=== PATIENT | female | born 1960 | race Caucasian/White ===

== ENCOUNTER 2017-03-04 20:39 | Emergency (ER) | payer OTHER ==
[~2017-03-04] VITALS: Ht 156.2 cm; Wt 90.9 kg
[2017-03-04 20:41] VITALS: BP 149/91; PULSE 97; RESP 20; TEMP 98.2; O2SAT 96
[2017-03-04] MEDS: RESP: ALBUTEROL 2.5 MG/IPRATROPIUM 0.5 MG NEB (SCH) INH ×2 (21:21→22:21)
[2017-03-04] MEDS ORDERED: methylPREDNISolone SOD SUCC 125 MG/2 ML VIAL IV PUSH ONE (21:30)
--- NOTE | 2017-03-04 21:50 | PD ---
HPI Chief Complaint: Respiratory Symptoms Time Seen by Provider: 21:12 Travel History International Travel<30 days: No Contact w/Intl Traveler<30days: No Traveled to known affect area: No History of Present Illness HPI 56yo F with PMH of asthma presents to the ED with c/o sob for 3 days. She is wheezing and it feels like her asthma. Also with chest tightness that is midsternal. +Cough. Denies fever, n/v, abdominal pain, focal weakness or numbness. PFSH Past Medical History Respiratory: Yes (asthma) Social History Tobacco Use: No Allergies-Medications (Allergen,Severity, Reaction): Coded Allergies: Penicillins (Verified Allergy, Unknown, 03/04/17) Sulfa (Sulfonamide Antibiotics) (Verified Allergy, Unknown, 03/04/17) Reported Meds & Prescriptions Reported Meds & Active Scripts Active Ventolin Hfa 18 GM Inh (Albuterol Sulfate) 90 Mcg/Act Aer 2 Puff INH Q4H PRN Deltasone (Prednisone) 20 Mg Tab 20 Mg PO BID 5 Days Review of Systems Except as stated in HPI: all other systems reviewed are Neg Physical Exam Narrative GENERAL: 56yo F in mild distress. SKIN: Focused skin assessment warm/dry. HEAD: Atraumatic. Normocephalic. EYES: Pupils equal and round. No scleral icterus. No injection or drainage. ENT: No nasal bleeding or discharge. Mucous membranes pink and moist. NECK: Trachea midline. No JVD. CARDIOVASCULAR: Regular rate and rhythm. No murmur appreciated. RESPIRATORY: + accessory muscle use. Expiratory wheezing bilaterally. GASTROINTESTINAL: Abdomen soft, non-tender, nondistended. MUSCULOSKELETAL: No obvious deformities. No clubbing. No cyanosis. No edema. NEUROLOGICAL: Awake and alert. No obvious cranial nerve deficits. Motor grossly within normal limits. Normal speech. PSYCHIATRIC: Appropriate mood and affect; insight and judgment normal. Data Data Last Documented VS Vital Signs Date Time Temp Pulse Resp B/P (MAP) Pulse Ox O2 Delivery O2 Flow Rate FiO2 03/04/17 23:28 100 16 153/86 (108) 97 03/04/17 20:41 98.2 Room Air Orders Orders Chest, Pa & Lat (03/04/17 ) Albuterol-Ipratropium Neb (Duoneb Neb) (03/04/17 21:00) Complete Blood Count With Diff (03/04/17 21:26) Basic Metabolic Panel (Bmp) (03/04/17 21:26) Magnesium (Mg) (03/04/17 21:26) Troponin I (03/04/17 21:26) Methylprednisolone So Succ Inj (Solumedr (03/04/17 21:30) Albuterol-Ipratropium Neb (Duoneb Neb) (03/04/17 21:30) Electrocardiogram (03/04/17 ) Ed Discharge Order (03/04/17 23:12) Labs Laboratory Tests Test 03/04/17 22:06 White Blood Count 9.5 TH/MM3 Red Blood Count 5.06 MIL/MM3 Hemoglobin 15.5 GM/DL Hematocrit 45.7 % Mean Corpuscular Volume 90.3 FL Mean Corpuscular Hemoglobin 30.7 PG Mean Corpuscular Hemoglobin Concent 33.9 % Red Cell Distribution Width 13.9 % Platelet Count 226 TH/MM3 Mean Platelet Volume 8.2 FL Neutrophils (%) (Auto) 45.6 % Lymphocytes (%) (Auto) 35.6 % Monocytes (%) (Auto) 7.4 % Eosinophils (%) (Auto) 10.1 % Basophils (%) (Auto) 1.3 % Neutrophils # (Auto) 4.3 TH/MM3 Lymphocytes # (Auto) 3.4 TH/MM3 Monocytes # (Auto) 0.7 TH/MM3 Eosinophils # (Auto) 1.0 TH/MM3 Basophils # (Auto) 0.1 TH/MM3 CBC Comment DIFF FINAL Differential Comment Blood Urea Nitrogen 11 MG/DL Creatinine 0.81 MG/DL Random Glucose 89 MG/DL Calcium Level 9.3 MG/DL Magnesium Level 2.1 MG/DL Sodium Level 139 MEQ/L Potassium Level 3.8 MEQ/L Chloride Level 108 MEQ/L Carbon Dioxide Level 23.7 MEQ/L Anion Gap 7 MEQ/L Estimat Glomerular Filtration Rate 74 ML/MIN Troponin I LESS THAN 0.02 NG/ML MDM Medical Decision Making Medical Screen Exam Complete: Yes Emergency Medical Condition: Yes Interpretation(s) EKG: NSR 98bpm. Normal axis. No ST segment elevation or depression. Differential Diagnosis Asthma exacerbation vs. pneumonia vs. ACS Narrative Course 56yo F with wheezing and sob for 3 days. Pt said it feels like her asthma. Also with some chest tightness. Labs reviewed, no leukocytosis. Troponin negative. CXR showed no acute disease. Pt reevaluated at bedside after duonebs and methylprednisolone 125mg IV and feels better. Do not think her chest tightness is cardiac, feels like her usual asthma. Pt did fly from [place] a week ago. However, this feels like her asthma and she has normal saturation. Pt is wheezing and now feels better after treatments. O2sat 97% on RA. Do not think this is PE. Said her chest tightness improved too. Do not think this is cardiac. Strict return precautions given. Diagnosis Primary Impression: Asthma exacerbation Qualified Codes: J45.901 - Unspecified asthma with (acute) exacerbation Patient Instructions: General Instructions Departure Forms: Tests/Procedures Additional Instructions: Please follow up with your primary care physician in 2-3 days. Return to the ED if symptoms worsen. Med/Other Pt SpecificInfo: Prescription(s) given Scripts Albuterol 18 GM Inh (Ventolin Hfa 18 GM Inh) 90 Mcg/Act Aer 2 PUFF INH Q4H Y for SHORTNESS OF BREATH, #1 INHALER 0 Refills Prov: Victoria Ornelas DO 03/04/17 Prednisone (Deltasone) 20 Mg Tab 20 MG PO BID for 5 Days, #10 TAB 0 Refills Prov: Victoria Ornelas DO 03/04/17 Disposition: 01 DISCHARGE HOME Condition: Stable Victoria Ornelas DO Mar 04, 2017 21:50
--- NOTE | 2017-03-04 21:55 | RADRPT ---
EXAM DATE/TIME: 03/04/2017 21:13 [facility] COMPARISON: No previous studies available for comparison. INDICATIONS : Cough and short of breath. MEDICAL HISTORY : None. SURGICAL HISTORY : Shunt. ENCOUNTER: Initial ACUITY: 4 - 6 days PAIN SCORE: 0/10 LOCATION: Bilateral chest FINDINGS: PA and lateral views of the chest demonstrate the lungs to be symmetrically aerated without evidence of mass, infiltrate or effusion. The cardiomediastinal contours are unremarkable. Osseous structure s are intact. CONCLUSION: 1. No active disease. Shunt tubing overlies the right hemithorax. Shaheen Steiner MD on March 04, 2017 at 21:52 Board Certified Radiologist. This report was verified electronically.
[2017-03-04 22:20] LABS: AUTOMATED NEUTROPHIL # 4.3 TH/MM3 (1.8-7.7); BASOPHIL # 0.1 TH/MM3 (0-0.2); BASOPHIL % 1.3 % (0.0-2.0); EOSINOPHIL % 10.1 % (0.0-4.0); HEMATOCRIT 45.7 % (35.0-46.0); HEMOGLOBIN 15.5 GM/DL (11.6-15.3); LYMPH % 35.6 % (9.0-44.0); LYMPHOCYTE # 3.4 TH/MM3 (1.0-4.8); MEAN CELL VOLUME 90.3 FL (80.0-100.0); MEAN CORPUSCULAR HEMOGLOBIN 30.7 PG (27.0-34.0); MEAN CORPUSCULAR HGB CONC 33.9 % (32.0-36.0); MEAN PLATELET VOLUME 8.2 FL (7.0-11.0); MONO % 7.4 % (0.0-8.0); MONOCYTE # 0.7 TH/MM3 (0-0.9); NEUT % 45.6 % (16.0-70.0); PLATELET COUNT 226 TH/MM3 (150-450); RED BLOOD COUNT 5.06 MIL/MM3 (4.00-5.30); RED CELL DISTRIBUTION WIDTH 13.9 % (11.6-17.2); WHITE BLOOD COUNT 9.5 TH/MM3 (4.0-11.0)
[2017-03-04 22:26] LABS: BICARBONATE 23.7 MEQ/L (21.0-32.0); BLOOD UREA NITROGEN 11 MG/DL (7-18); CALCIUM 9.3 MG/DL (8.5-10.1); CHLORIDE 108 MEQ/L (98-107); CREATININE 0.81 MG/DL (0.50-1.00); GLOMERULAR FILTRATION RATE 74 ML/MIN (>89); GLUCOSE,RANDOM 89 MG/DL (74-106); MAGNESIUM 2.1 MG/DL (1.5-2.5); SODIUM (NA) 139 MEQ/L (136-145)
[2017-03-04 22:31] LABS: TROPONIN I LESS THAN 0.02 NG/ML (0.02-0.05)
[2017-03-04] MEDS ORDERED: PRED-503 PO (23:02)
[2017-03-04] MEDS ORDERED: VENTAER INH (23:02)
[2017-03-04 23:28] VITALS: BP 153/86
--- NOTE | 2017-03-05 23:51 | EKG ---
Date Performed: 03/04/2017 Time Performed: 22:14:46 PTAGE: 56 years EKG: Sinus rhythm NORMAL ECG NO PREVIOUS TRACING DOCTOR: Marco Infante Interpretating Date/Time 03/05/2017 23:49:25
== END 2017-03-04 23:31 | disposition home or self-care (01) ==
LOC: NEPD 20:39
DX: J45.901 Unspecified asthma with (acute) exacerbation (principal); R07.89 Other chest pain; Z88.0 Allergy status to penicillin; Z88.2 Allergy status to sulfonamides; Z79.51 Long term (current) use of inhaled steroids
CPT/HCPCS: 71046; 80048; 83735; 84484; 85025; 93005; 94640; 94664; 96374; 99285; J2930